=== PATIENT | male | born 1990 | race Hispanic/Latino ===

== ENCOUNTER 2022-05-17 00:30 | Emergency (ER) | payer SELFPAY ==
[2022-05-17] MEDS ORDERED: methylPREDNISolone Sod Succ/PF 125 MG/2 ML VIAL ONE (01:34)
[2022-05-17] MEDS ORDERED: Famotidine/PF 20 mg/2ml Vial ONE (01:34)
[2022-05-17] MEDS ORDERED: diphenhydrAMINE 50 MG/ML VIAL ONE (01:34)
== END 2022-05-17 03:05 | disposition home or self-care (01) ==
LOC: BURERS 00:30
DX: T78.40XA Allergy, unspecified, initial encounter (principal)
CPT/HCPCS: 96374; 96375; J1200; J2930; S0028